=== PATIENT | male | born 1955 | race Caucasian/White ===

== ENCOUNTER → 2017-08-10 | Day surgery (SDC) | payer OTHER ==
[~2017-08-10] MED LIST: ADULT ASPIRIN81 MG PO; ASPIR-LOW81 MG; BP MED; DIOVAN; FENTANYL CITRATE/PF 100MCG/2 ML INJ ONE; HYOSCYAMINE SULFATE 0.5 MG/ML AMP ONE; LIDOCAINE HCL 2% LOCAL INJ 5 ML SDV VIAL INJ ONE; LORTAB 7.51 EA GT; MELATONIN3 MG PO; MIDAZOLAM HCL 2 MG/2 ML VIAL ONE; PRILOSEC10 M1 PO; PROPOFOL IV EMULSION 10 MG/ML 50 ML VIAL ONE; TYLENOL; Z.0.AMLODIPINE BESY1 PO; Z.0.AMLODIPINE BESYL PO; Z.0.BENTYL10 MG; Z.0.DICYCLOMINE HCL2 PO; Z.0.LEVAQUIN500 MG PO; Z.0.LISINOPRIL10 MG PO; Z.0.PANTOPRAZOLE SO4 PO; Z.0.PROTONIX20 MG
--- NOTE | 2017-08-10 16:08 | Operative Report ---
DATE OF PROCEDURE: August 10, 2017 REFERRING PHYSICIAN: Dr. Pita Lopez. PROCEDURE PERFORMED: 1. Esophagogastroduodenoscopy with biopsies. 2. Colonoscopy with polypectomy and biopsies. INDICATIONS FOR ESOPHAGOGASTRODUODENOSCOPY: Epigastric pain, heartburn indigestion. INDICATIONS FOR COLONOSCOPY: Colorectal cancer screening. Lower abdominal pain. History of diverticulitis. MEDICATION: Patient was done under MAC. Please see anesthesiologist's note. PROCEDURE: With the patient in the left lateral decubitus position, the flexible fiberoptic Olympus gastroscope was introduced into the esophagus under direct visualization without any difficulty. There was some patchy erythema noted the distal esophagus. The scope was then advanced with ease into the stomach, and the mucosa overlying the antrum and the body revealed some patchy erythema and mild to moderate edema and biopsies were obtained and sent to stain for H. pylori. The pylorus was of normal contour and shape, was intubated with ease, and the scope was advanced all the way to the 2nd portion of the duodenum. The scope was then withdrawn slowly. Mucosa overlying the proximal 2nd portion and the duodenal bulb appeared to be within normal limits. The scope was then withdrawn back into the stomach and retroflexed, and the mucosa overlying the fundus and the cardia appeared to be within normal limits. The scope was then straightened out. The stomach was decompressed. The scope was subsequently withdrawn. Patient tolerated the procedure well. IMPRESSION: 1. Distal esophagitis. 2. Gastritis biopsied. Biopsies sent to stain for H. pylori. PLAN: Follow up histology. Initiate Protonix 40 mg 1 p.o. q.a.m. a.c. Patient was then turned around and after adequate lubrication of the anal canal, a flexible fiberoptic Olympus colonoscope was inserted into the rectum with ease and advanced all the way to the cecum. An approximately 8 mm sessile polyp was snared from the cecum. The ileocecal valve was intubated, and the scope was advanced into the terminal ileum. Biopsies were obtained. The scope was then withdrawn back into the colon. It was then withdrawn slowly, and mucosa overlying the ascending and the transverse grossly appeared to be within normal limits. There were some mild patchy inflammatory changes noted in the left colon and the rectum, and random biopsies were obtained. Diverticular disease was noted in the distal descending and the sigmoid colon. The scope was then retroflexed into the distal rectum and small internal hemorrhoids were noted, none of which was actively bleeding. The scope was then straightened out. The rectosigmoid area as well as the distal rectal area were decompressed. The scope was subsequently withdrawn. Patient tolerated the procedure well. IMPRESSION: 1. Cecal polyp snared. 2. Mild patchy left-sided colitis. 3. Diverticulosis. 4. Proctitis, mild, biopsied. 5. Internal hemorrhoids, none actively bleeding. PLAN: Follow up histology. Initiate Bentyl 10 mg 1 p.o. t.i.d. and VSL#3 DS 1 p.o. b.i.d. Patient will need a followup colonoscopy in 3 years. Job#: [id number] cc:PITA LOPEZ MD
== END | disposition home or self-care (01) ==
LOC: OR 10:31
PROVIDERS: ATTEND Internal Medicine Gastroenterology
DX: Z12.11 Encounter for screening for malignant neoplasm of colon (principal); D12.0 Benign neoplasm of cecum; K29.50 Unspecified chronic gastritis without bleeding; K51.50 Left sided colitis without complications; K25.9 Gastric ulcer, unspecified as acute or chronic, without hemorrhage or perforation; K20.9 Esophagitis, unspecified; K57.30 Diverticulosis of large intestine without perforation or abscess without bleeding; K62.89 Other specified diseases of anus and rectum; K64.8 Other hemorrhoids; J45.909 Unspecified asthma, uncomplicated; I10 Essential (primary) hypertension; G47.00 Insomnia, unspecified; Z01.810 Encounter for preprocedural cardiovascular examination; Z79.82 Long term (current) use of aspirin; Z68.34 Body mass index [BMI] 34.0-34.9, adult; Z85.46 Personal history of malignant neoplasm of prostate; Z87.442 Personal history of urinary calculi; Z87.01 Personal history of pneumonia (recurrent); Z87.891 Personal history of nicotine dependence
CPT/HCPCS: 43239; 45380; 45385; 93005; J1980; J2001; J2250

== ENCOUNTER → 2017-08-30 | Outpatient (CLI) | payer BC ==
[~2017-08-30] MED LIST changes: -FENTANYL CITRATE/PF 100MCG/2 ML INJ ONE; -HYOSCYAMINE SULFATE 0.5 MG/ML AMP ONE; +LACTATED RINGER'S 1,000 ML ONE; -LIDOCAINE HCL 2% LOCAL INJ 5 ML SDV VIAL INJ ONE; -MIDAZOLAM HCL 2 MG/2 ML VIAL ONE; +MIDAZOLAM HCL 5MG/ML 2ML VIAL ONE; +PROPOFOL IV EMULSION 10 MG/ML 20 ML VIAL ONE; -PROPOFOL IV EMULSION 10 MG/ML 50 ML VIAL ONE; +SODIUM CHLORIDE 0.9% 100 ML 100 ML ONE
--- NOTE | 2017-08-30 15:12 | Diagnostic Imaging Report ---
Examination: MRI SPINE LUMBAR WITHOUT CONTRAST History: Low back pain. Comparison studies: None Technique: Sagittal, coronal and axial T2 , sagittal T1 and STIR; axial spin density oblique. Findings: Number of lumbar vertebral bodies: Five. Alignment: Normal lordosis. No scoliosis. Soft tissues: No T2 hyperintense inflammatory changes. Posterior paraspinal soft tissues and muscles: No abnormality. Lower thoracic cord: Normal in signal and morphology. The tip of the conus is at T12. Cauda equina: No masses. No arachnoiditis. Vertebrae: No fractures, infection or neoplasm. Degenerative changes: L1-L2 and L3-L4: No abnormalities. L4-L5: Grade I anterolisthesis due to bilateral pars defect. Uncovering of a diffuse disc bulge and mild bilateral facet arthropathy. No canal or foraminal stenosis. Central annular fissure. L5-S1: Small central disc protrusion with associated annular fissure. Diffuse bulge and mild bilateral facet arthropathy result in mild bilateral neural foraminal narrowing. No canal stenosis. IMPRESSION: 1. Degenerative changes L4-L5 and L5-S1 without canal stenosis. 2. No significant (not moderate to severe) foraminal stenosis. 3. Bilateral isthmic spondylolisthesis at L4-L5. 4. Annular fissures at L4-L5 and L5-S1. Signed by: Dr. Mana Woods M.D. on 08/30/2017 3:08 PM
--- NOTE | 2017-08-30 15:13 | Diagnostic Imaging Report ---
Examination: MRI SPINE CERVICAL WITHOUT CONTRAST History: Neck pain. Numbness of the hands and feet. Comparison studies: None Technique: Sagittal T1, T2 and IR, axial T2 and axial gradient echo intravenous contrast: None Findings: Motion artifact on the sagittal STIR and axial T2 images. Alignment: Straightening of normal lordosis. No scoliosis. Cervicomedullary junction: No abnormalities. Patent foramen magnum. Soft tissues: No T2 hyperintense inflammatory changes. Spinal cord: Normal in size and signal from the foramen magnum through T1. Vertebrae: No fractures, infection or neoplasm. Degenerative changes: C1-C2 through C7-T1: No abnormalities. IMPRESSION: Despite limitation, no degenerative disc or foraminal or canal stenosis. Signed by: Dr. Mana Woods M.D. on 08/30/2017 3:10 PM
== END ==
LOC: OR 09:57
PROVIDERS: ATTEND Family Medicine
DX: M54.16 Radiculopathy, lumbar region (principal); M54.12 Radiculopathy, cervical region
CPT/HCPCS: 72141; 72148; J2250; J7120